=== PATIENT | female | born 1945 | race African-American/Black ===

== ENCOUNTER 2024-10-02 04:30 | Emergency (ER) | payer MEDICARE, OTHER ==
[~2024-10-02] VITALS: Ht 175.3 cm; Wt 85.0 kg
[2024-10-02 04:45] VITALS: O2SAT 96
[2024-10-02 05:14] LABS: BASOPHILS % 0.8 % (0.0-2.0); EOSINOPHILS % 1.9 % (0.0-5.0); HEMATOCRIT. 38.6 % (36.0-48.0); HEMOGLOBIN. 12.1 g/dL (12.0-16.0); LYMPHOCYTES % 26.5 % (20.0-50.0); MEAN PLATELET VOLUME 8.4 fl (7.4-10.4); MONOCYTES % 8.9 % (2.0-8.0); NEUTROPHILS % 61.9 % (40.0-76.0); PLATELET 262 x1000/uL (130-400); RED BLOOD CELL COUNT 4.58 mill/uL (4.2-5.4); RED CELL DISTRIBUTION WIDTH 16.9 % (11.6-14.6)
[2024-10-02 05:31] LABS: CREATININE 1.7 mg/dL (0.6-1.0); UREA NITROGEN BLOOD 19 mg/dL (9-23)
[2024-10-02 05:33] LABS: ASPARTATE AMINOTRANSFERASE 15 IU/L (<34); BILIRUBIN DIRECT < 0.1 mg/dL (<=3.0); BILIRUBIN TOTAL 0.4 mg/dL (0.1-1.0); PROTEIN TOTAL 7.1 g/dL (6.0-8.3); TROPONIN I HIGH SENSITIVITY 4 ng/L (3.0-34)
[2024-10-02] MEDS: SODIUM CHLORIDE 0.9% 1,000 ML IV ONE (05:37)
[2024-10-02 05:44] LABS: INR 2.3
[2024-10-02 05:49] LABS: ETHANOL BLOOD < 10 mg/dL (<10)
[2024-10-02] MEDS: MECLIZINE 25MG TABLET PO ONE (07:14)
[2024-10-02 08:15] VITALS: BP 168/64; PULSE 50; RESP 14; TEMP 36.9; O2SAT 98
== END 2024-10-02 08:26 | disposition short-term general hospital (02) ==
LOC: ER 04:30 → EDBEDREQ 06:53 → EDBEDREQTM 06:53 → CANBEDREQ 07:29 → ER 08:26
DX: R42 Dizziness and giddiness (principal); E11.9 Type 2 diabetes mellitus without complications; I11.0 Hypertensive heart disease with heart failure; I48.91 Unspecified atrial fibrillation; I50.9 Heart failure, unspecified; I67.82 Cerebral ischemia; F10.90 Alcohol use, unspecified, uncomplicated; Y90.9 Presence of alcohol in blood, level not specified; Z79.899 Other long term (current) drug therapy
CPT/HCPCS: 80076; 80048; 80320; 83880; 85025; 85610; 85730; 84484; 36415; 71045; 70450; 93005; 96360; 99285; J8597; J7030; G0480